=== PATIENT | female | born 1950 | race Hispanic/Latino ===

== ENCOUNTER 2017-01-07 11:53 | Outpatient (CLI) | payer MEDICARE ==
[2017-01-07 12:39] LABS: Blood Urea Nitrogen 20 mg/dL (7-17)
[2017-01-07] MEDS ORDERED: NACL ONE (14:00)
--- NOTE | 2017-01-10 08:21 | Cat Scan Report ---
CT LUMBAR SPINE WITH AND WITHOUT CONTRAST HISTORY: Low back pain, radiculopathy. TECHNIQUE: Helical CT with sagittal and coronal reformatted images before and after intravenous contrast. COMPARISON: None. FINDINGS: There is suggestion of a gentle levoscoliosis in the lumbar region on the coronal reformatted images estimated at less than 5 degrees with apex near L3. There is normal height and alignment of the lumbar vertebra on the sagittal images. Advanced disc space narrowing and vacuum phenomenon is noted at L4-5. The remaining disc levels are within normal limits. There is mild diffuse facet arthropathy with mild facet hypertrophy. There is mild thickening of the ligamentum flavum at the lowest 3 levels. L1-2: No significant abnormality. L2-3: No significant abnormality. L3-4: No significant abnormality. L4-5: Advanced degenerative disc disease is again noted with circumferential spurring. There is moderate facet arthropathy and hypertrophy of the ligamentum flavum. There is borderline central canal narrowing measuring 9-10 mm in AP dimension. Moderate left neural foraminal narrowing is estimated at 75%. No right neural foraminal narrowing. L5-S1: A mild diffuse posterior bulging disc is identified. Mild facet arthropathy. No central canal narrowing or neural foraminal narrowing appreciated. There is no abnormal enhancement following IV contrast. Impression: Lumbar spondylosis as described above. L4-5 is the most affected level. Correlate for left L4 radiculopathy.
== END 2017-01-07 11:54 | disposition home or self-care (01) ==
LOC: CT 11:53
PROVIDERS: ATTEND Orthopaedic Surgery
DX: M47.896 Other spondylosis, lumbar region (principal); M51.16 Intervertebral disc disorders with radiculopathy, lumbar region; M41.86 Other forms of scoliosis, lumbar region; M12.88 Other specific arthropathies, not elsewhere classified, other specified site; M24.28 Disorder of ligament, vertebrae
CPT/HCPCS: 36415; 72133; 82565; 84520; Q9967

== ENCOUNTER 2017-03-31 19:20 | Emergency (ER) | payer MEDICARE ==
[2017-03-31] MEDS ORDERED: NACL 0.9% 1000 ML 1,000 ML IV ONE (20:52)
[2017-03-31] MEDS ORDERED: REGLAN IV ONE (20:52)
[2017-03-31] MEDS ORDERED: BENADRYL IV ONE (20:52)
[2017-03-31] MEDS ORDERED: ZOFRAN IV ONE (20:52)
--- NOTE | 2017-03-31 21:03 | Emergency Department Report ---
ED Headache HPI - General Chief Complaint: Headache Stated Complaint: BAD HEAD PAIN Time Seen by Provider: 03/31/17 20:38 Source: patient, family Exam Limitations: no limitations - History of Present Illness Initial Comments: 66-year-old female presents to the emergency Department with family complaining of headache. Patient states she has had a right-sided headache for the past 6 weeks. Pain has been constant but became acutely worse this afternoon. Patient describes the pain as a red hot poker piercing right side of her head. Pain does not radiate. She reports associated photophobia and nausea. She denies numbness, tingling, or extremity weakness. Patient states that she saw her neurologist, Dr. Myers, yesterday. He ordered an outpatient CT which was performed, reportedly showing an enlarged right ventricle. Family states that the neurologist states he was just going to watch this. There are no other complaints. Timing/Duration: constant (6 weeks) Quality: severe Head Injury Location: parietal Recent Head Trauma: chronic headaches Modifying Factors: improves with: exposure to light Associated Symptoms: nausea/vomiting Allergies/Adverse Reactions: Allergies Sulfa (Sulfonamide Antibiotics) Allergy (Severe, Verified 01/30/14 10:47) Rash ceftriaxone Allergy (Verified 07/30/15 09:15) Rash chlorzoxazone [From Parafon Forte] Allergy (Verified 07/30/15 13:43) Unknown zolpidem tartrate [From Ambien] Allergy (Unverified 01/07/17 11:55) HALLUCINATIONS NSAIDS (Non-Steroidal Anti-Inflamma Adverse Reaction (Severe, Verified 01/30/14 10:47) ARTIFICIAL HEART VALVE Home Medications: Ambulatory Orders FLUoxetine HCL [PROzac] 40 mg PO QDAY 07/30/15 HYDROcodone/APAP 10-325 [[place] 10-325 mg TAB] 1 each PO Q6HR PRN 07/30/15 Lovastatin [Altoprev] 40 mg PO QPM 07/30/15 Methadone [Dolophine] 10 mg PO Q12H 07/30/15 Tizanidine HCl [Zanaflex] 4 mg PO BID 07/30/15 Warfarin Sodium [Coumadin] 4 mg PO QDAY 07/30/15 clonazePAM 2 mg PO QHS 07/30/15 traZODone [Desyrel] 50 mg PO QHS #30 tablet 08/01/15 Butalb/Acetamin/Caff 50-325-40 [Fioricet] 1 each PO Q4H PRN #20 tablet 04/01/17 ED Review of Systems ROS: Stated complaint: BAD HEAD PAIN Other details as noted in HPI Comment: All other systems reviewed and negative Eyes: other (photophobia) Gastrointestinal: nausea Neurological: headache ED Past Medical Hx - Past Medical History Previous Medical History?: Yes Hx Congestive Heart Failure: No Hx Diabetes: No Hx Deep Vein Thrombosis: No Hx GERD: Yes Hx Psychiatric Treatment: Yes (depression) Hx Asthma: No Hx COPD: No Hx HIV: No Additional medical history: fibromyalgia, hyperlipidemia - Surgical History Past Surgical History?: Yes Hx Coronary Stent: No Hx Open Heart Surgery: Yes (MITRAL VALVE REPLACEMENT IN 2005) Hx Cholecystectomy: Yes Hx Appendectomy: Yes Additional Surgical History: neurostimulator in back. left ankle surgery x 4. Hysterectomy. Laminectomy x 2 - Family History Family history: no significant - Social History Smoking Status: Never Smoker Substance Use Type: None - Medications Home Medications: Home Medications Medication Instructions Recorded Confirmed Last Taken Type FLUoxetine HCL [PROzac] 40 mg PO QDAY 07/30/15 09/22/15 09/21/15 History HYDROcodone/APAP 10-325 [[place] 1 each PO Q6HR PRN 07/30/15 09/22/15 09/21/15 History 10-325 mg TAB] Lovastatin [Altoprev] 40 mg PO QPM 07/30/15 09/22/15 09/21/15 History Methadone [Dolophine] 10 mg PO Q12H 07/30/15 09/22/15 09/21/15 History Tizanidine HCl [Zanaflex] 4 mg PO BID 07/30/15 09/22/15 09/21/15 History Warfarin Sodium [Coumadin] 4 mg PO QDAY 07/30/15 09/22/15 09/21/15 History clonazePAM 2 mg PO QHS 07/30/15 09/22/15 09/21/15 History traZODone [Desyrel] 50 mg PO QHS #30 tablet 08/01/15 09/22/15 09/21/15 Rx Butalb/Acetamin/Caff 50-325-40 1 each PO Q4H PRN #20 tablet 04/01/17 Unknown Rx [Fioricet] ED Physical Exam - General Limitations: No Limitations General appearance: alert, in distress (mild distress secondary to pain) - Head Head exam: Present: atraumatic, normocephalic - Eye Eye exam: Present: normal appearance, PERRL, EOMI - ENT ENT exam: Present: normal exam, normal orophraynx, mucous membranes moist - Neck Neck exam: Present: normal inspection, full ROM. Absent: tenderness - Respiratory Respiratory exam: Present: normal lung sounds bilaterally. Absent: respiratory distress - Cardiovascular Cardiovascular Exam: Present: regular rate, normal rhythm, normal heart sounds - GI/Abdominal GI/Abdominal exam: Present: soft, normal bowel sounds. Absent: distended, tenderness - Extremities Exam Extremities exam: Present: normal inspection, full ROM. Absent: tenderness - Back Exam Back exam: Present: normal inspection, full ROM. Absent: tenderness - Neurological Exam Neurological exam: Present: alert, oriented X3. Absent: motor sensory deficit - Skin Skin exam: Present: warm, dry, intact ED Course Vital Signs 03/31/17 03/31/17 19:52 20:50 Temperature 97.6 F Pulse Rate 100 H 92 H Respiratory 16 16 Rate Blood Pressure 140/89 Blood Pressure 128/73 [Left] O2 Sat by Pulse 100 100 Oximetry ED Medical Decision Making - Lab Data Result diagrams: 03/31/17 21:01 03/31/17 21:01 - Radiology Data Radiology results: report reviewed, image reviewed CT the head shows a slightly enlarged right lateral ventricle, possible normal variant. No other acute intracranial abnormality noted. - Medical Decision Making Lab and imaging results reviewed and discussed with the patient and family. Patient reports feeling much better with medication. She would like to go home. Patient will be discharged at this time to follow up with her neurologist. - Differential Diagnosis migraine headache, raised ICP, ICH Critical care attestation.: If time is entered above; I have spent that time in minutes in the direct care of this critically ill patient, excluding procedure time. ED Disposition Clinical Impression: Headache Qualifiers: Headache type: unspecified Headache chronicity pattern: acute headache Intractability: not intractable Qualified Code(s): R51 - Headache Disposition: DC- TO HOME OR SELFCARE Is pt being admited?: No Condition: Stable Instructions: Acute Headache (ED) Prescriptions: Butalb/Acetamin/Caff 50-325-40 [Fioricet] 1 each PO Q4H PRN #20 tablet PRN Reason: Headache Referrals: LEONA MYERS MD [Staff Physician] - 3-5 Days Time of Disposition: 00:06
[2017-03-31 21:27] LABS: Basophils % (Auto) 0.7 % (0.0-1.8); Eosinophils % (Auto) 1.3 % (0.0-4.3); Hematocrit 41.2 % (30.3-42.9); Hemoglobin 13.9 gm/dl (10.1-14.3); Mean Corpuscular HGB Conc 34 % (30-34); Mean Corpuscular Hemoglobin 30 pg (28-32); Mean Corpuscular Volume 88 fl (79-97); Platelet Count 227 K/mm3 (140-440); Red Blood Count 4.69 M/mm3 (3.65-5.03); Red Cell Distribution Width 13.6 % (13.2-15.2); White Blood Count 6.7 K/mm3 (4.5-11.0)
[2017-03-31 21:38] LABS: INR 1.74 (0.87-1.13)
--- NOTE | 2017-03-31 21:50 | Cat Scan Report ---
FINAL REPORT PROCEDURE: CT HEAD/BRAIN WO CON TECHNIQUE: Computerized tomography of the head was performed without contrast material. HISTORY: Worsening R sided headache, on coumadin COMPARISON: No prior studies are available for comparison. FINDINGS: The study is mildly limited. This patient's head was scanned although this appears to have been done in 3 separate sequences and there is mild motion artifact present as well. Brain: No evidence of intracranial hemorrhage. No parenchymal hemorrhage, mass lesions or mass effect are seen. No abnormal extraxial fluid collects or masses are seen. There is mild decreased density in the periventricular white matter without mass effect. This is fairly symmetric suggesting gliosis related to microvascular disease or white matter changes of aging. Ventricles: Ventricles are mildly asymmetric. The right lateral ventricle is larger than the left. This appears to represent a normal variant. Bone Windows: No evidence of skull fracture. Paranasal sinuses: Visualized portions of the paranasal sinuses appear clear. Mastoid air cells: Clear IMPRESSION: Mild asymmetry lateral ventricles probably representing a normal variant. There appears to be mild gliosis in the periventricular white matter as described. No other abnormalities are seen. No evidence of intracranial hemorrhage.
[2017-03-31 22:03] LABS: Anion Gap 11 mmol/L; BUN/Creatinine Ratio 21.42; Blood Urea Nitrogen 15 mg/dL (7-17); Calcium 9.1 mg/dL (8.4-10.2); Carbon Dioxide 33 mmol/L (22-30); Glucose 90 mg/dL (65-100); Potassium 4.3 mmol/L (3.6-5.0); Sodium 133 mmol/L (137-145)
[2017-03-31] MEDS ORDERED: DILAUDID ONE (22:33)
[2017-03-31] MEDS ORDERED: DILAUDID IV ONE (22:54)
[2017-04-01 00:46] VITALS: BP 106/52
== END 2017-04-01 00:46 | disposition home or self-care (01) ==
LOC: ED 19:20
DX: R51 Headache (principal); F32.9 Major depressive disorder, single episode, unspecified; K21.9 Gastro-esophageal reflux disease without esophagitis; Z88.2 Allergy status to sulfonamides; Z88.8 Allergy status to other drugs, medicaments and biological substances
CPT/HCPCS: 36415; 70450; 80048; 85025; 85610; 96361; 96374; 96375; 99284; J1170; J1200; J2405; J2765; J7030

== ENCOUNTER 2017-08-08 07:43 | Outpatient (CLI) | payer MEDICARE ==
--- NOTE | 2017-08-08 09:12 | Ultrasound Report ---
RIGHT UPPER QUADRANT ULTRASOUND: HISTORY: Abnormal liver function tests. Technique: Transabdominal ultrasound imaging with Doppler interrogation. FINDINGS: The gallbladder has been surgically removed. The CBD measures 4.5 mm. No biliary dilatation. Images of the liver parenchyma, pancreas, right kidney and aorta are within normal limits. 1.8 cm simple cyst in the mid to superior right kidney is noted. No perihepatic ascites. IMPRESSION: Unremarkable right upper quadrant ultrasound. Cholecystectomy. 1.8 cm right renal cyst.
== END 2017-08-08 07:44 | disposition home or self-care (01) ==
LOC: US 07:43
PROVIDERS: ATTEND Internal Medicine
DX: N28.1 Cyst of kidney, acquired (principal); R94.5 Abnormal results of liver function studies; Z90.49 Acquired absence of other specified parts of digestive tract
CPT/HCPCS: 76705

== ENCOUNTER 2017-12-28 10:52 | Outpatient (CLI) | payer MEDICARE ==
--- NOTE | 2017-12-28 13:53 | Cat Scan Report ---
FINAL REPORT EXAM: CT THORACIC SPINE WO CON HISTORY: THORACIC SPONDYLOSIS TECHNIQUE: CT of the thoracic spine performed. Axial images and coronal and sagittal reformatted images were obtained. PRIORS: None. FINDINGS: There is no thoracic spine fracture seen. Thoracic vertebral heights and alignment are maintained. There is a stimulator device in the mid to lower thoracic region which creates artifact and limits visualization of spinal canal and osseous structures at the level of T8. There is no evidence of significant spinal stenosis. There is minimal intervertebral narrowing and mild endplate spurring involving mid to lower thoracic levels. IMPRESSION: Minimal degenerative change involving mid to lower thoracic levels. No significant disc protrusion or spinal stenosis seen. Stimulator device creates artifact limiting visualization of structures at the level of T8.
== END 2017-12-28 10:53 | disposition home or self-care (01) ==
LOC: CT 10:52
PROVIDERS: ATTEND Anesthesiology
DX: M47.814 Spondylosis without myelopathy or radiculopathy, thoracic region (principal)
CPT/HCPCS: 72128